=== PATIENT | female | born 1965 | race Caucasian/White ===

== ENCOUNTER → 2016-07-23 | Outpatient (CLI) | payer BC | LOC: BHSO 16:14 | DX: F41.1 Generalized anxiety disorder (principal) ==

== ENCOUNTER → 2016-11-03 | Outpatient (CLI) | payer BC | LOC: BHSO 14:50 | DX: F33.1 Major depressive disorder, recurrent, moderate (principal) ==

== ENCOUNTER → 2017-08-19 | Outpatient (CLI) | payer BC | LOC: BHSO 16:00 | DX: F41.1 Generalized anxiety disorder (principal) | CPT/HCPCS: G0463 ==